=== PATIENT | male | born 1990 | race Caucasian/White ===

== ENCOUNTER 2016-05-19 09:37 | Emergency (ER) | payer SELFPAY ==
[2016-05-19] MEDS ORDERED: KETOROLAC TROMETHAMINE 60 MG/2 ML VIAL IM ONE ×2 (11:31→11:36)
[2016-05-19] MEDS ORDERED: PROMETHAZINE HCL 50 MG/ML AMPUL IM ONE ×2 (11:31→11:36)
--- NOTE | 2016-05-19 11:32 | ERNOTE ---
Medical Problem HPI - Narrative Date of Service: 05/19/16 - General Chief Complaint: General Assessment Time Seen by Provider: 05/19/16 11:21 Source: patient, RN notes reviewed Exam Limitations: no limitations - Immun/Allergies/Home Medications Immunizations: IMMUNIZATION HX History of Influenza Vaccine No Hx Pneumococcal Vaccination No Allergies/Adverse Reactions: Allergies No Known Allergies Allergy (Unverified 05/19/16 11:02) Home Medications: HOME MEDICATIONS Ibuprofen [Motrin] 600 mg PO Q6H PRN #40 tab 05/19/16 [Last Taken Unknown] Ondansetron [Zofran Odt] 8 mg PO Q8H PRN #12 tab 05/19/16 [Last Taken Unknown] - History of Present History Narrative: 25 y/o male to ED by private vehicle for body aches and nausea that began last evening. He has vomited twice since coming to the ED. He also reports a cough for several days. He has not taken anything for his symptoms. He denies any sick contacts. Date (Duration): 05/18/16 Review of Systems - Review of Systems Constitutional: Present: fatigue, malaise. Absent: recent illness, fever, chills EYE: Present: no symptoms reported ENT: Absent: ear pain, nose congestion, sore throat Respiratory: Present: cough. Absent: shortness of breath, wheezing Cardiology: Absent: palpitations, syncope Gastrointestinal/Abdominal: Present: nausea, vomiting, abdominal pain. Absent: diarrhea, constipation Genitourinary: Absent: frequency, dysuria, hematuria Musculoskeletal: Present: back pain, muscle pain Skin: Absent: rash, lesions Neurological: Present: headache, dizziness/light-headedness Endocrine: Present: no symptoms reported Hematologic/Lymphatic: Present: no symptoms reported Psych: Present: no symptoms reported - Patient's Past Medical History Patient History - Medical: No pertinent hx Patient History - Cardiac/Respiratory: No pertinent hx Patient History - Cancer: No Hx of Cancer Patient History - Surgical Procedures: No surgical history Patient History - Other: None - Social History Living Situations: home Psych History: No pertinent hx Smoking Status: Current every day smoker Alcohol Use: none Drug Use: none, marijuana - Immunizations Hx Pneumococcal Vaccination: No History of Influenza Vaccine: No Physical Exam - Physical Exam General Appearance: Present: wd/wn, alert, mild distress, thin, other - disheveled Eye Exam: Normal inspection: bilateral, PERRL: bilateral Ears, Nose, Throat: Present: normal ENT inspection Neck: Present: normal inspection, nontender, supple Respiratory: Present: no respiratory distress, normal breath sounds, no accessory muscle use, lungs clear, chest tenderness - throughout Cardiovascular/Chest: Present: regular rate, rhythm, no murmur, normal peripheral pulses Gastrointestinal/Abdominal: Present: normal bowel sounds, nondistended, soft, no organomegaly, tenderness - diffuse Back Exam: Present: normal range of motion, CVA tenderness (R), CVA tenderness ( L), vertebral tenderness - entire spine Extremity Exam: Present: normal inspection Neurological Exam: Present: alert, oriented, no motor/sensory deficits, other - dysphoric. Absent: normal mood/affect Skin Exam: Present: normal color, warm/dry ED Progress - Results and Orders Patient's Lab Results:: I have reviewed the patient's lab results. - Vital Signs Patient's Vital Signs:: I have reviewed the patient's vital signs. Vital Signs: Vital Signs 05/19/16 10:52 Temperature 37.1 C Pulse Rate 106 H Respiratory 12 Rate Blood Pressure 119/67 O2 Sat by Pulse 99 Oximetry - Progress/Reassessment Chief Complaint: General Assessment Progress:: Unchanged Departure - Departure Clinical Impression: Viral gastroenteritis Disposition: Home self-care Condition: Stable Instructions: Viral Gastroenteritis, Adult, [id number] Additional Instructions: Liquids as discussed - advance diet as tolerated Rest Do not take ibuprofen on an empty stomach OK to take Tylenol Follow up if no improvement in 2 days, or if symptoms worsen before Prescriptions: Ibuprofen [Motrin] 600 mg PO Q6H PRN #40 tab PRN Reason: Pain Ondansetron [Zofran Odt] 8 mg PO Q8H PRN #12 tab PRN Reason: Nausea
[2016-05-19 12:35] VITALS: BP 120/76
== END 2016-05-19 12:33 | disposition home or self-care (01) ==
LOC: ER 09:37
DX: A08.4 Viral intestinal infection, unspecified (principal); Z72.0 Tobacco use